=== PATIENT | female | born 1985 | race Caucasian/White ===

== ENCOUNTER → 2020-10-12 | Outpatient (CLI) | payer OTHER ==
--- NOTE | 2020-10-12 12:08 | KCIC ---
EXAM: MRI BRAIN WITHOUT CONTRAST. HISTORY: Chronic migraine headaches. Extremity/facial numbness and tingling. TECHNIQUE: Magnetic resonance images of the brain were obtained without intravenous contrast. COMPARISON: 08/30/2020. FINDINGS: There is no diffusion restriction. There are no T1 or T2 signal abnormalities. The ventricles are nor mal in size and position. The paranasal sinuses are clear. The orbits are unremarkable. The temporal bones are unremarkable. Th e calvarium demonstrates no suspicious lesions. IMPRESSION: 1. Negative noncontrast MRI of the brain. Electronically signed by: Nidhi Banks MD (10/12/2020 12:05 PM) [facility]
--- NOTE | 2020-10-12 12:37 | KCIC ---
MRI of the cervical spine without contrast 10/12/2020 CLINICAL HISTORY: Tingling involving both upper extremities and face. Neck pain. Numbness. TECHNIQUE: Unenhanced T1-weighted, T2-weighted and inversion recovery sagittal and gradient echo and T2-weighted axial images of the cervical spine were obtained. FINDINGS: There is straightening of the normal cervical lordosis. Degenerative signal changes are see n involving the C3-4, C4-5 and C5-6 discs. A 7 mm probable hemangioma is seen involving the C6 verteb ral body. The cervical spinal cord is normal morphology, position, and signal characteristics. On the axial images throughout the cervical spine, mild degenerative changes are seen consisting of m inimal generalized disc bulges and very mild degenerative changes involving the uncovertebral and fac et joints. These findings do not result in significant central spinal canal or neural foraminal steno sis. IMPRESSION: Very mild degenerative changes are seen involving the cervical spine. These findings do n ot result in significant central spinal canal or neural foraminal stenosis. Electronically signed by: Chau Montano MD (10/12/2020 12:34 PM) [id number]
== END ==
LOC: KCIC MRI 10:20
PROVIDERS: ATTEND Nurse Practitioner Family
DX: M47.812 Spondylosis without myelopathy or radiculopathy, cervical region (principal); G43.709 Chronic migraine without aura, not intractable, without status migrainosus; R20.2 Paresthesia of skin; M54.2 Cervicalgia
CPT/HCPCS: 70551; 72141